=== PATIENT | female | born 1970 | race African-American/Black ===

== ENCOUNTER 2022-11-12 13:45 | Emergency (ER) | payer OTHER, SELFPAY ==
[2022-11-12 14:01] VITALS: BP 145/81; PULSE 100; RESP 20; TEMP 36.8; O2SAT 97
--- NOTE | 2022-11-12 14:18 | ED.GENADULT ---
HPI - General Adult General Chief complaint: Dental/Oral Stated complaint: right side of face painful,swollen History of Present Illness HPI narrative: 52 y/o female presented for c/o right sided facial tenderness and swelling. Onset 2 days. Reports mild sinus congestion, sore throat, and subjective fever. Denies sob, wheezing, dental pain, ear pain, n/v/d. Took NyQuil for symptoms. Related Data Allergies Allergy/AdvReac Type Severity Reaction Status Date / Time latex Allergy Unknown Unknown Verified 11/12/22 14:01 No Known Allergies Allergy Unverified 12/30/13 10:37 Review of Systems Review of Systems: CONSTITUTIONAL: Denies body aches, reports fever, chills, sweats. EYES: Denies visual changes, redness, or discharge. ENT: Reports right facial pain and swelling Denies rhinorrhea, congestion, or otalgia. CARDIOVASCULAR: Denies chest pain, palpitations, or edema. RESPIRATORY: Denies dyspnea. GASTROINTESTINAL: Denies abdominal pain, nausea, vomiting, or diarrhea. SKIN: Denies rash, itching, or wounds. MUSCULOSKELETAL: Denies back pain, joint pain, or myalgia. NEUROLOGIC: Denies headache [facility] Past Medical History Medical History (Updated 11/12/22 @ 14:46 by Jaina Wilson APRN) No pertinent past medical history Family History Family History Father Diabetes mellitus Hypertension Family history of cardiovascular disease Mother Diabetes mellitus Hypertension Sibling Family history of arthritis Social History Social History Smoking status: Never smoker Second hand tobacco smoke exposure: No Alcohol intake: never Exam Narrative: GENERAL: mildly Ill-appearing, no acute distress. EYES: conjunctivae clear ENT: Mucous membranes moist. Left TM pearly bains with normal light reflex; Right TM erythematous, bulging and intact, canal erythematous without drainage; no tragal or mastoid tenderness. Oropharynx mildly erythematous without lesions. Tonsils enlarged without exudate. No drooling, no hoarseness, no trismus, uvula midline. No tripod positioning, hot potato voice, or soft palate swelling. NECK: Supple. parotid and tonsillar lymphadenopathy with tenderness to palpation. No mandibular swelling, tenderness or erythema. CHEST: Clear to auscultation, breath sounds equal. No respiratory distress, speaks in full sentences. HEART: Regular rate and rhythm. No murmur heard. SKIN: Warm, dry, no rash. NEURO: Alert and oriented x3. Course Course Emergency Course: Patient is aware of diagnosis, understands and agrees to treatment plan. Anticipatory guidance given. Patient agrees to follow-up as directed and is aware of reasons to seek care at the emergency department. Portions of this record may have been created with voice recognition software Level of Care: Express Care Visit Vital Signs Vital signs: Vital Signs Temperature 98.2 F 11/12/22 14:01 Pulse Rate 100 11/12/22 14:01 Respiratory Rate 20 11/12/22 14:01 Blood Pressure 145/81 H 11/12/22 14:01 Pulse Oximetry 97 11/12/22 14:01 Oxygen Delivery Room Air 11/12/22 14:01 Temperature 98.2 F 11/12/22 14:01 Pulse Rate 100 11/12/22 14:01 Respiratory Rate 20 11/12/22 14:01 Blood Pressure 145/81 H 11/12/22 14:01 Pulse Oximetry 97 11/12/22 14:01 Oxygen Delivery Room Air 11/12/22 14:01 Medical Decision Making MDM Narrative Medical decision making narrative: negative COVID and strep result reviewed with patient. Patient's facial swelling and pain is c/w lymphadenopathy, viral infection vs AOM; will treat for Right AOM though pt does not report significant pain. Advised treatment for sialoadenitis as well. Discussed physical exam findings and possible etiologies at length. Advised supportive measures and reviewed signs/symptoms to go to the ER. Pt is appropriate for outpt treatment and f/u.
== END 2022-11-12 14:51 | disposition home or self-care (01) ==
PROVIDERS: Emergency Provider Nurse Practitioner Family
DX: R59.1 Generalized enlarged lymph nodes (principal); Z20.822 Contact with and (suspected) exposure to COVID-19
CPT/HCPCS: 87081; 87147; 87426; 87880; 99213; C9803; G0463

== ENCOUNTER 2023-10-03 14:27 | Emergency (ER) | payer OTHER, SELFPAY ==
--- NOTE | ~2023-10-03 | XR_ITS ---
EXAM: XR knee LT 3V DATE: 10/03/2023 15:02 HISTORY: left medial knee pain s/p fall today . COMPARISON: None available. FINDINGS: Normal mineralization. No fracture or dislocation. No lytic or blastic lesion. Moderate tr icompartmental osteoarthritis. Achilles and plantar enthesopathy. No erosion or periosteal change. Sc attered varicosities. IMPRESSION: No acute osseous finding in the left knee. Reviewed, dictated and finalized at location K.
[2023-10-03 14:37] VITALS: BP 158/89; PULSE 83; RESP 16; TEMP 37.2
--- NOTE | 2023-10-03 14:41 | ED.FALL ---
HPI - Fall General Chief Complaint: Fall Stated Complaint: FALL Source: patient, RN notes reviewed and old records reviewed Mode of arrival: ambulatory Limitations: no limitations History of Present Illness HPI Narrative: Patient presents with complaints of left knee pain after set in level fall just prior to arrival. 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 She denies other injury and trauma. She is observed ambulating with a steady gait. She voices no other concerns or complaints at this time. Related Data Allergies Allergy/AdvReac Type Severity Reaction Status Date / Time latex Allergy Unknown Unknown Verified 11/12/22 14:01 Review of Systems Review of Systems: All systems reviewed & are unremarkable except as noted in HPI and below Constitutional: Constitutional: Reports as per HPI and Reports no additional constitutional complaints ENT: Reports system reviewed and no additional complaints, except as documented Cardiovascular: Cardiovascular: Reports no additional cardiovascular complaints Respiratory: Respiratory: Reports no additional respiratory complaints Gastrointestinal: Gastrointestinal: Reports no additional gastrointestinal complaints Musculoskeletal: Musculoskeletal: Reports no additional musculoskeletal complaints, Reports as per HPI and Reports arthralgias (left knee) [facility] Past Medical History Medical History No pertinent past medical history Family History Family History Father Diabetes mellitus Hypertension Family history of cardiovascular disease Mother Diabetes mellitus Hypertension Sibling Family history of arthritis Social History Social History Smoking status: Never smoker Second hand tobacco smoke exposure: No Alcohol intake: never Exam Const: General: cooperative, no acute distress, alert and awake Orientation/consciousness: oriented to person, oriented to place and oriented to time HENMT: Head: normal to inspection Resp: Effort & Inspection: normal respiratory effort and able to speak in complete sentences Auscultation: clear to auscultation bilaterally, no crackles, no rales, no rhonchi and no wheezes Cardio: Palpation: normal PMI Rate: regular rate Rhythm: regular rhythm Heart sounds: S1 normal heart sound present and S2 normal heart sound present Neuro: General: oriented to person, oriented to place and oriented to time Cranial nerves: Yes CN's II-XII intact bilaterally Extrem: Left lower extremity: knee Details: normal to inspection, tenderness Location: of the patella Details: laterally and crepitus Location: at the knee; normal knee ligament exam Psych: Appearance: grossly normal Thought process: Normal thought process present Insight: Good insight present (Psych) Judgement: Good judgement present (Psych) Course Course Level of Care: Express Care Visit Vital Signs Vital signs: Vital Signs Temperature 99.0 F 10/03/23 14:37 Pulse Rate 83 10/03/23 14:37 Respiratory Rate 16 10/03/23 14:37 Blood Pressure 158/89 H 10/03/23 14:37 Temperature 99.0 F 10/03/23 14:37 Pulse Rate 83 10/03/23 14:37 Respiratory Rate 16 10/03/23 14:37 Blood Pressure 158/89 H 10/03/23 14:37 MDM - Fall MDM Narrative Medical decision making narrative: X-ray of left knee shows arthritis without acute process. Crepitus on exam. Patient had not taken anything for pain prior to arrival. Short course of NSAIDs prescribed. Work note provided. Supportive care measures discussed. Follow up with primary care provider, emergency department for new or worse symptoms. Discharge instructions reviewed with patient, as well as provided in writing per nursing staff. The instructions also include specific and strict return/GO
== END 2023-10-03 15:45 | disposition home or self-care (01) ==
PROVIDERS: Emergency Provider Nurse Practitioner Family
DX: M25.562 Pain in left knee (principal)
CPT/HCPCS: 73562; 99213; G0463

== ENCOUNTER 2024-09-06 15:22 | Emergency (ER) | payer OTHER, SELFPAY ==
--- NOTE | 2024-09-06 15:23 | ED.SKABFB ---
HPI - Skin/Abscess/Foreign Bdy General Chief complaint: Skin/Abscess/Foreign Body Stated complaint: Rash Time Seen by Provider: 09/06/24 15:23 Source: patient Mode of arrival: ambulatory Limitations: no limitations History of Present Illness HPI narrative: Sonia is a 54-year-old female patient presenting to the clinic today with complaints of a rash under her breast x 1 week. She reports she noticed this 1 week ago when she was wearing a new sports bra. Thinks she may be having an allergic reaction to the bra. Area is itchy- non painful. Related Data Allergies Allergy/AdvReac Type Severity Reaction Status Date / Time latex Allergy Unknown Unknown Verified 09/06/24 15:23 Review of Systems Review of Systems: Pertinent positives per HPI. Patient denies any fever, chills, headache, visual changes, dizziness, cough, runny nose, sore throat, shortness of breath, chest pain, palpitations, nausea, vomiting, diarrhea, constipation, abdominal pain, or any urinary issues. PMFSH Past Medical History Medical History No pertinent past medical history Family History Family History Father Diabetes mellitus Hypertension Family history of cardiovascular disease Mother Diabetes mellitus Hypertension Sibling Family history of arthritis Social History Social History Smoking status: Never smoker Second hand tobacco smoke exposure: No Alcohol intake: never Comments At the time of my signature, I reviewed and agree with the nursing past medical, surgical, social, and family history. There is no relevant family history pertinent to the patient complaint. Exam Narrative: General: Well-developed, well nourished, in no apparent distress Head: Normocephalic, atraumatic. Cardio: Regular rate and rhythm, s1 and s2 normal, no murmur appreciated. Resp: Clear to auscultation bilaterally, no rhonchi, rales, wheezing or rubs. Integumentary: [place], warm, and dry, intact without lesion, itchy slight red rash under bilateral breast- non painful rash, no satellite lesions. Course Course Emergency Course: Portions of this record may have been created with voice recognition software. Level of Care: Express Care Visit Vital Signs Vital signs: Vital Signs Temperature 36.5 C 09/06/24 15:31 Pulse Rate 83 09/06/24 15:31 Respiratory Rate 16 09/06/24 15:31 Blood Pressure 148/79 H 09/06/24 15:31 Pulse Oximetry 95 09/06/24 15:31 Oxygen Delivery Room Air 09/06/24 15:31 Temperature 36.5 C 09/06/24 15:31 Pulse Rate 83 09/06/24 15:31 Respiratory Rate 16 09/06/24 15:31 Blood Pressure 148/79 H 09/06/24 15:31 Pulse Oximetry 95 09/06/24 15:31 Oxygen Delivery Room Air 09/06/24 15:31 Vital signs reviewed MDM - Skin/Abscess/Foreign Bdy MDM Narrative Medical decision making narrative: At the time of visit patient is resting comfortably on the exam table. Patient appears to be nontoxic. Rash under her breast x 1 week. She reports she noticed this 1 week ago when she was wearing a new sports bra. Thinks she may be having an allergic reaction to the bra. Area is itchy- non painful. No other environment changes other than the new bra. Plan: I suspect patient has dermatitis. Prescription for triamcinolone cream was sent to the pharmacy. Supportive measures were discussed with the patient and they voiced understanding discharge instructions and agrees to treatment plan. Return precautions reviewed Differential Diagnosis Differential diagnosis: Likely abscess of skin or subcutaneous tissue, viral exanthem, dermatophytosis, urticaria, herpes zoster, allergic reaction to drug, cellulitis, eczema, insect bites, impetigo and contact dermatitis Discharge Plan Discharge Clinical Impression: Dermatitis Patient Disposition: Home Condition: Stable Instructions: Antibiotic Form, Dermatitis (ED) Additional Instructions: Apply triamcinolone cream as directed Avoid hot showers Avoid scratching as this can cause a secondary infection May take Benadryl 25-50mg every 6 hours as needed for itching. Follow up with your PCP in 3-5 days if symptoms persist or sooner if they worsen Go to the Emergency Room if symptoms worsen- fever, rash spreading with treatment, shortness of breath, tongue swelling, drooling, or chest pain Patient Language: Ukrainian Prescriptions: New triamcinolone acetonide 0.1 % cream 1 applic topical BID 7 Days Qty: 30 0RF Follow-up/Referrals: UNKNOWN,DOCTOR [Non-Staff] - Time of Disposition: 15:36 Quality NIHSS Nursing Documentation ED NIHSS nursing documentation: reviewed/agree
[2024-09-06 15:31] VITALS: BP 148/79; PULSE 83; RESP 16; TEMP 36.5; O2SAT 95
== END 2024-09-06 15:50 | disposition home or self-care (01) ==
PROVIDERS: Emergency Provider Nurse Practitioner Family
DX: L30.9 Dermatitis, unspecified (principal)
CPT/HCPCS: 99213; G0463